=== PATIENT | male | born 1945 | race Caucasian/White ===

== ENCOUNTER 2018-11-30 14:11 | Emergency (ER) | payer MEDICARE, SELFPAY ==
[2018-11-30 14:12] VITALS: BP 172/89; PULSE 80; RESP 16; TEMP 36.8; O2SAT 96; BMI 33.2
--- NOTE | 2018-11-30 14:52 | ED.VIS.GEN ---
History of Present Illness Chief Complaint: Abd Pain Informant: Patient Onset: Days - Days regarding tenesmus and anal pain, Weeks - Problems with constipation and bright red blood, October 31 Context: Sudden Onset Timing: Intermittent Quality: Pain, discomfort, urge to defecate and blood per rectum Location: Rectum Current Severity: Mild Maximum Severity: Severe Worsened by: Bowel movement and sitting Relieved by: Nothing Associated Symptoms: No weight loss, night sweats or abdominal discomfort Narrative: Patient is an elderly male who is scheduled to see Dr. Toscano on December 03. He is scheduled for colonoscopy. He reports bright red blood per rectum since October. He reports problems with bowel and constipation since long distance trip October 31. He states he gets constipated when he goes on a long trip. He was not concerned until he he noted his stool is more she bloody with possible mucus. There is family history of inflammatory bowel disorder. He states his mother of Crohn's disease. Patient also reports difficulty urinating. He denies history of enlarged prostate. He has not had a rectal exam since 2010. He denies dysuria, frequency, urgency or hematuria. Prior similar symptoms: Yes Recent Illness/Hospitalization: No Past Medical History - Allergies and Home Meds Allergies/Adverse Reactions: Allergies No Known Allergies Allergy (Verified 11/30/18 14:15) Primary Care Physician: Gurwinder Farr MD [Primary Care Provider] - Prior records reviewed: Yes - Gout, hypercholesterolemia, ED, hemorrhoids Surgical History: appendectomy - 1961 Lives: Spouse/ Significant Other Smoking Status: Former smoker Alcohol: Rare Review of Systems General: Denies: Chills, Fever, Malaise, Sweats, Weight loss Eyes: Denies: Visual changes - bilaterally, Diplopia ENT: Denies: Rhinorrhea, Sore throat Cardiovascular: Denies: Chest pain, Palpitations Respiratory: Denies: Dyspnea, Cough, Dyspnea on exertion Gastrointestinal: Reports: Hematochezia. Denies: Abdominal pain, Nausea, Vomiting, Diarrhea, Constipation, Melena, -, - Genitourinary: Denies: Dysuria, Hematuria, Frequency Musculoskeletal: Denies: Myalgias, Arthralgias, Neck pain, Back pain, Extremity Pain Skin: Denies: Rash, Wounds Neurological: Denies: Headache, Weakness, Numbness Hematologic: Denies: Easy bruising, Easy bleeding Allergy: Denies: Uticaria Physical Exam Vital Signs/Narrative: Vital Signs Temp Pulse Resp BP Pulse Ox 11/30/18 14:12 98.3 F 80 16 172/89 H 96 Inital Vital Signs reviewed: Yes General: Well nourished, Well developed, No Acute Distress Head: Normocephalic, Atraumatic Eyes: Perrl, EOMI ENT: Moist mucous membranes, No rhinorrhea Neck: Supple, Nontender Cardiovascular: Regular rate, Regular rhythm, No murmurs Respiratory: No distress, CTA bilaterally, Chest nontender Abdomen: Soft, Nontender, Nondistended, Normal bowel sounds Rectal: - - Brown more she bloody stool. Possible hemorrhoid. No fissures or fistulas noted. Prostate slightly enlarged and right lobe larger than left. Back: Nontender, Normal Inspection Extremities: Nontender, No edema Skin: Normal color, No rash Neurological: Alert, Oriented x3, Cranial nerves II-XII grossly intact, Normal Strength, Normal Sensation. Negative for: Normal Gait Psychological: Normal affect, Normal Mood Diagnostic/Tx/Re-eval Laboratory Results 11/30/18 11/30/18 14:45 14:45 WBC 8.2 RBC 4.64 Hgb 14.9 Hct 42.8 MCV 92.2 MCH 32.1 H MCHC 34.8 RDW 13.2 RDW Differential 44.3 H Plt Count 237 MPV 9.7 Immature Gran % (Auto) 0.200 Neut % (Auto) 70.9 H Lymph % (Auto) 15.1 L [place] % (Auto) 11.5 H Eos % (Auto) 2.1 Baso % (Auto) 0.2 Absolute Neuts (auto) 5.8 Absolute Lymphs (auto) 1.24 Total Counted Not Reportable Sodium 138 Potassium 4.0 Chloride 102 Carbon Dioxide 29.0 Anion Gap 7 BUN 15 Creatinine 0.88 Estim Creat Clear Calc 76.99 Est GFR (MDRD) Af Amer 110 Est GFR (MDRD) Non-Af 91 BUN/Creatinine Ratio 17.0 Glucose 100 Calcium 9.1 - Medical Decision Making Since patient reports blood per rectum for greater than 1 month will obtain CBC to assess H&H and differential. Basic minimal panel was obtained to assess BUN to creatinine ratio. Will perform an anoscopy to determine if there is any abnormality of the mucosa or if there is evidence of hemorrhoids. Blood work is unremarkable. Anoscopy reveals maroon-brown bloody stool. Since he is scheduled to see Dr. Toscano on Sunday for colonoscopy will page and discussed case. Case was discussed with Dr. Toscano. He informed me that he performed colonoscopy 2 years ago and was unremarkable. He suspects fissure in anal. Recommended topical cream and will see patient on Sunday for colonoscopy. Procedures Procedure(s): Maroon-brown bloody liquidy stool with mucus noted. There is no obvious hemorrhoids. Difficult to assess the mucosa. ED Disposition - Plan for ED Patient: Diagnosis: Hematochezia, Anal or rectal pain Instructions: ED Fissure Anal Ch Prescriptions: Dibucaine 1 applic TOPICAL 4X/DAY #1 tube Referrals: Gurwinder Farr MD [Primary Care Provider] - Rogelio Matute MD [STAFF PHYSICIAN] - Keep Ismael appointment
[2018-11-30 15:05] LABS: Absolute Lymphocyte Count 1.24 X10^3/ul (0.83-4.51); Absolute Neutrophil Count 5.8 X10^3/uL (2.0-7.7); Basophil# 0.02 X10^3/uL; Basophil% 0.2 % (0-1); Eosinophil# 0.17 X10^3/uL; Eosinophils% 2.1 % (0-5); Hematocrit 42.8 % (40-54); Hemoglobin 14.9 g/dl (13.0-16.5); Lymphocyte # 1.24 X10^3/ul (4.0); Lymphocyte % 15.1 % (19-41); Mean Corp Hgb Conc 34.8 g/gl (32-36); Mean Corpuscular Hgb 32.1 pg (27.0-32.0); Mean Corpuscular Volume 92.2 fL (80-94); Mean Platelet Vol. 9.7 fl (6.2-12.0); Monocyte# 0.95 X10^3/uL; Monocyte% 11.5 % (0-10); Neutrophil # 5.83 X10^3/uL (2.7-7.7); Neutrophil % 70.9 % (47-70); Platelet Count 237 K/mm3 (150-450); RBC Distribution Width CV 13.2 % (11.6-14.6); RBC Distribution Width SD 44.3 fl (35.1-43.9); Red Blood Count 4.64 M/mm3 (4.6-6.2); White Blood Count 8.2 K/mm3 (4.4-11.0)
[2018-11-30 15:07] LABS: Anion Gap 7 (5-15); BUN 15 mg/dL (7-18); Calcium,Total 9.1 mg/dL (8.5-10.1); Chloride 102 mmol/L (98-107); Creatinine, Serum 0.88 mg/dL (0.70-1.30); EST Glomerular Filtration Rate 91 mL/min (>60); Est Glom Filt Rate - Afr Amer 110 mL/min (>60); Estimated Creatinine Clearance 76.99 ml/min; Glucose 100 mg/dL (74-106); Sodium Level 138 mmol/L (136-145)
[2018-11-30 15:08] LABS: POSITIVE COUNT NO; POSITIVE DIFFERENTIAL NO; POSITIVE MORPHOLOGY NO
[2018-11-30 16:13] VITALS: BP 151/73; PULSE 74; RESP 16; O2SAT 96
[2018-11-30 16:14] VITALS: BP 151/73; PULSE 74; RESP 16; O2SAT 96
== END 2018-11-30 16:15 | disposition home or self-care (01) ==
LOC: ED 14:44
PROVIDERS: Emergency Provider Emergency Medicine; Family Provider Family Medicine; PCP Family Medicine
DX: K92.1 Melena (principal); K62.89 Other specified diseases of anus and rectum; Z87.891 Personal history of nicotine dependence
CPT/HCPCS: 36415; 46600; 80048; 85025; 99283; A4216

== ENCOUNTER → 2019-07-21 09:57 | Outpatient (CLI) | payer MEDICARE, SELFPAY ==
--- NOTE | 2019-07-21 10:00 | RAD_ITS ---
STUDY: X-RAY - PELVIS REASON FOR EXAM: Male, 73 years old. Inflammatory polyarthropathy. Patient has a colostomy TECHNIQUE: One view of the pelvis was obtained. COMPARISON: None. FINDINGS: There is a non-specific bowel gas pattern. There are multiple calcified phleboliths. Normal bilateral iliac wings, sacroiliac joints and visualized sacrum. Normal visualized bilateral superior and inferior pubic rami. There is narrowing with sclerosis of the pubic symphysis. Normal ischial tuberosities. Normal visualized right femoral head. Normal right acetabulum. Normal right hip joint. Normal visualized left femoral head. Normal left acetabulum. Normal left hip joint. RAD/Pelvis 1 or 2 Views IMPRESSION: No acute abnormality is seen. Electronically Signed: Donato Collins, at 10:49 EST , Service support ,
[2019-07-21 12:32] LABS: Erythrocyte Sedimentation Rate 7 mm/hr (0-20)
[2019-07-21 12:34] LABS: Absolute Lymphocyte Count 2.14 X10^3/uL (0.83-4.51); Absolute Neutrophil Count 2.9 X10^3/uL (2.0-7.7); Basophil# 0.02 X10^3/uL; Basophil% 0.3 % (0-1); Eosinophil# 0.16 X10^3/uL; Eosinophils% 2.8 % (0-5); Hematocrit 48.2 % (40-54); Hemoglobin 15.7 g/dL (13.0-16.5); Lymphocyte # 2.14 X10^3/ul (4.0); Mean Corp Hgb Conc 32.6 g/dL (32-36); Mean Corpuscular Hgb 30.6 pg (27.0-32.0); Mean Platelet Vol. 11.1 fl (6.2-12.0); Monocyte# 0.57 X10^3/uL; Monocyte% 9.8 % (0-10); NRBC Flagged by Analyzer 0 % (0-5); Neutrophil # 2.88 X10^3/uL (2.7-7.7); Neutrophil % 49.8 % (47-70); Platelet Count 231 K/mm3 (150-450); RBC Distribution Width CV 16.9 % (11.6-14.6); RBC Distribution Width SD 58.3 fl (35.1-43.9); Red Blood Count 5.13 M/mm3 (4.6-6.2); White Blood Count 5.8 K/mm3 (4.4-11.0)
[2019-07-21 13:13] LABS: BUN 16 mg/dL (7-18); Creatinine, Serum 1.01 mg/dL (0.70-1.30); Glucose 96 mg/dL (74-106)
[2019-07-21 13:14] LABS: ALB/GLOB Ratio 0.9 RATIO (0.9-2.4); AST(SGOT) 23 U/L (15-37); Alanine Aminotransfer ALT/SGPT 38 U/L (16-61); Albumin, Serum 3.6 g/dL (3.2-5.0); Alkaline Phosphatase 112 U/L (45-117); Anion Gap 6 (5-15); BUN/Creat Ratio 15.8 RATIO (10-20); CRP < 2.90 mg/L (0.0-3.0); Calcium,Total 9.1 mg/dL (8.5-10.1); Chloride 107 mmol/L (98-107); EST Glomerular Filtration Rate 77 mL/min (>60); Est Glom Filt Rate - Afr Amer 93 mL/min (>60); Globulin 3.9 g/dL (2.2-4.2); Protein, Total 7.5 g/dL (6.4-8.2); Rheumatoid Factor < 10.0 IU/mL (<15); Sodium Level 138 mmol/L (136-145)
[2019-07-21 13:42] LABS: Hepatitis B Surface Antibody Non-Reactive; Hepatitis B Surface Antigen Non-Reactive (Nonreactive); Hepatitis C Antibody Non-Reactive (Nonreactive)
[2019-07-27 14:53] LABS: CCP IgG Antibodies 6 units (0-19); HLA B27 Negative (.)
== END ==
PROVIDERS: Family Provider Family Medicine; PCP Family Medicine; Referring Provider Internal Medicine Rheumatology; Visit Provider Internal Medicine Rheumatology
DX: M06.4 Inflammatory polyarthropathy (principal); Q66.71 Congenital pes cavus, right foot; M10.9 Gout, unspecified; K21.9 Gastro-esophageal reflux disease without esophagitis; E78.5 Hyperlipidemia, unspecified; I65.29 Occlusion and stenosis of unspecified carotid artery; K55.1 Chronic vascular disorders of intestine; N40.0 Benign prostatic hyperplasia without lower urinary tract symptoms
CPT/HCPCS: 36415; 72170; 80053; 81374; 85025; 85652; 86140; 86200; 86431; 86706; 86803; 87340

== ENCOUNTER 2020-09-13 09:24 | Outpatient (RCR) | payer MEDICARE, SELFPAY | END 2020-09-13 23:59 | LOC: IMMUN 09:24 | PROVIDERS: PCP Family Medicine; Visit Provider Family Medicine | DX: Z23 Encounter for immunization (principal) | CPT/HCPCS: 0011A; 0012A ==